=== PATIENT | female | born 1945 | race Caucasian/White ===

== ENCOUNTER → 2017-06-11 | Outpatient (REF) ==
[~2017-06-11] MED LIST: IBUPROFEN200 M1 PO; LORTAB 7.5/5001 TAB PO; LOW DOSE ASPIRI81 MG PO; MULTIVITAMIN FO1 CAP PO; PYRIDIUM200 M1 PO; VITAMIN C500 MG PO; antibiotic
== END ==
LOC: ZLAB.WCH 14:37
DX: Z01.89 Encounter for other specified special examinations (principal)

== ENCOUNTER → 2018-06-10 | Outpatient (REF) | LOC: ZLAB.WCH 16:02 | DX: Z01.89 Encounter for other specified special examinations (principal) ==

== ENCOUNTER 2020-07-20 07:46 | Day surgery (SDC) | payer MEDICARE, BC ==
[2020-07-20] VITALS (9 sets, daily range): BP systolic 123–158; BP diastolic 63–89; PULSE 50–66; TEMP 97.5–97.7
[~2020-07-20] VITALS: Ht 165.1 cm; Wt 73.2 kg
[2020-07-20] MEDS ORDERED: ASPIRIN 81M81 MG/TA2 PO (08:25)
[2020-07-20] MEDS ORDERED: MASON NATURAL2000 IU PO (08:26)
--- NOTE | 2020-07-20 12:25 | NUR ---
Returns to room 5 per cart from PACU accompanied by Jagruti POND and is awake and alert. IV fluids infusing #20G LH and site is free of redness. Temp 97.3 and denies pain or nausea. Assisted up to the bathroom and is able to void and resturns to room.
--- NOTE | 2020-07-20 12:40 | NUR ---
Resting with eyes closed and allowed to rest.
--- NOTE | 2020-07-20 12:55 | NUR ---
States that she is having right sided discomfort. Warm blankets applied on the right side.
--- NOTE | 2020-07-20 12:58 | NUR ---
Tylenol 650mg given for right sided abdominal pain.
--- NOTE | 2020-07-20 13:10 | NUR ---
Again assisted up to the bathroom. Voids and returns to room. IV to INT. Drinking cranberry juice.
[2020-07-20] MEDS ORDERED: PYRIDIUM 100MG100 MG PO (13:16)
--- NOTE | 2020-07-20 13:25 | NUR ---
Resting and denies further pain.
--- NOTE | 2020-07-20 13:40 | NUR ---
Eating petrona crackers and drinking more juice. Script for Pyridium called to [facility].
--- NOTE | 2020-07-20 14:10 | NUR ---
Resting when not disturbed.
--- NOTE | 2020-07-20 14:35 | NUR ---
Denies further pain. IV discontinued and site free of redness. Dresses self and spouse notified patient is ready for discharge.
--- NOTE | 2020-07-20 14:45 | NUR ---
Dismissal instructions given and voices understanding of these. Provided follow up appointment date and time.
--- NOTE | 2020-07-20 14:51 | NUR ---
Patient dismissed to home driven by spouse and taken to the front door per wheelchair and assisted into vehicle with instructions in hand.
== END 2020-07-20 14:51 | disposition home or self-care (01) ==
LOC: SDCO 07:46
DX: N20.1 Calculus of ureter (principal); N30.30 Trigonitis without hematuria; Z85.528 Personal history of other malignant neoplasm of kidney; Z79.82 Long term (current) use of aspirin; Z88.0 Allergy status to penicillin; Z79.899 Other long term (current) drug therapy; Z79.1 Long term (current) use of non-steroidal anti-inflammatories (NSAID); Z90.5 Acquired absence of kidney; Z90.6 Acquired absence of other parts of urinary tract
CPT/HCPCS: C1769; C2617; J2405; J2704; J3010; J7120; Q9967

== ENCOUNTER → 2020-07-28 | Outpatient (CLI) | payer MEDICARE, BC ==
[~2020-07-28] MED LIST changes: +ASPIRIN 81M81 MG/TA2 PO; +MASON NATURAL2000 IU PO; +PYRIDIUM 100MG100 MG PO
== END ==
LOC: COL.LAB 08:00 → EDSTATUS 18:00 → SDCO 18:00
DX: N20.1 Calculus of ureter (principal)
CPT/HCPCS: J1885; J2405; J2704; J3010; J7120

== ENCOUNTER → 2023-09-18 | Outpatient (CLI) | payer MEDICARE, BC ==
[~2023-09-18] MED LIST changes: +B-121000 MCG PO; +NORCO 325 MG-51 TAB PO; +POTASSIUM CITRATE PO; +VITAMIN D31000 I1 PO
== END ==
LOC: MC.RAD 12:39
DX: C50.511 Malignant neoplasm of lower-outer quadrant of right female breast (principal); Z17.0 Estrogen receptor positive status [ER+]
CPT/HCPCS: A9520-JZ; C1769

== ENCOUNTER 2023-09-19 07:33 | Day surgery (SDC) | payer MEDICARE, BC ==
[~2023-09-19] VITALS: Ht 165.1 cm; Wt 69.5 kg
[~2023-09-19 07:33] MED LIST changes: -B-121000 MCG PO; +LR 1,000 ML IV SCH; +Meclizine 25 MG TAB PO SCH; -NORCO 325 MG-51 TAB PO; -POTASSIUM CITRATE PO; -VITAMIN D31000 I1 PO
--- NOTE | 2023-09-19 08:05 | NUR ---
PATIENT AMBULATORY FROM RADIOLOGY ACCOMPANIED BY HERBERT AND ORIENTED TO ROOM 7. VOICES UNDERSTANDING OF SURGERY AND CONSENTS SIGNED. IVF INFUSING. SIDERAILS UP X2 AND CALL LIGHT IN REACH.
[2023-09-19] MEDS ORDERED: VITAMIN D31000 I1 PO (08:59)
[2023-09-19] MEDS ORDERED: B-121000 MCG PO (09:00)
[2023-09-19] MEDS ORDERED: POTASSIUM CITRATE PO (09:03)
[2023-09-19 09:07] VITALS: BP 138/74; PULSE 63; TEMP 98.2
[2023-09-19] MEDS ORDERED: Midazolam 2 MG/2 ML VIAL ONE (09:40)
[2023-09-19] MEDS ORDERED: fentaNYL 50 MCG/ML 2 ML VIAL ONE (09:40)
[2023-09-19] MEDS ORDERED: Lidocaine PF 2% (20 MG/ML) 5 ML VIAL ONE (09:40)
[2023-09-19] MEDS ORDERED: Ondansetron 4 MG/2 ML VIAL ONE (09:41)
[2023-09-19] MEDS ORDERED: dexAMETHasone 10 MG/ML VIAL ONE (09:41)
[2023-09-19] MEDS ORDERED: NS 10 ML IV ONE (09:41)
--- NOTE | 2023-09-19 10:21 | NUR ---
PATIENT BROUGHT BACK TO BAY 7 AFTER HAVING PRE-OP BLOCK PLACED IN PACU IN PREPARATION FOR SURGERY. CALL LIGHT IN REACH. RESTING WITH EYES CLOSED AND CALL LIGHT IN REACH.
[2023-09-19] MEDS ORDERED: Morphine 4 MG/ML VIAL IV PRN (11:00)
[2023-09-19] MEDS ORDERED: Meperidine 50 MG/ML 1 ML VIAL IV PRN (11:00)
[2023-09-19] MEDS ORDERED: HYDROmorphone 2 MG/1 ML VIAL IV PRN (11:00)
[2023-09-19] MEDS ORDERED: Ondansetron 4 MG/2 ML VIAL IV PRN ×2 (11:00→12:15)
[2023-09-19] MEDS ORDERED: ePHEDrine 50 MG/ML VIAL ONE (11:13)
[2023-09-19] MEDS ORDERED: Topical Skin Adhesive 1 EACH (1 ML) TOP ONE (11:45)
[2023-09-19] MEDS ORDERED: NORCO 325 MG-51 TAB PO (12:06)
[2023-09-19] MEDS ORDERED: Acetaminophen 325 MG TAB PO PRN (12:15)
[2023-09-19] MEDS ORDERED: Ibuprofen 600 MG TAB PO PRN (12:15)
[2023-09-19 12:45] VITALS: BP 148/79; PULSE 71; TEMP 97
[2023-09-19 13:00] VITALS: BP 144/75; PULSE 78
[2023-09-19 13:15] VITALS: BP 141/68; PULSE 76
--- NOTE | 2023-09-19 14:40 | NUR ---
1245-REPORT OBTAINED FROM DEJAH PRINGLE. PATIENT ARRIVED TO [facility], ALERT AND ORIENTED ON ARRIVAL. VITAL SIGNS TAKEN, VSS. PATIENT DENIES PAIN OR NAUSEA. INCISION SITES CDI. PATIENT GIVEN PO INTAKE, TOLERATING WELL 1300-PT DENIES COMPLAINTS, VSS. 1315-DISCHARGE INSTRUCTIONS REVIEWED WITH PT, QUESTIONS INVITED. IV CATHETER DISCONTINUED, TIP INTACT. PRESSURE HELD AND BANDAGE APPLIED. PT DRESSED INDEPENDENTLY. 1330-PATIENT DISCHARGED HOME TO [facility] VIA WHEELCHAIR, PICKED UP BY DAUGHTER. ALL BELONGINGS AND D/C INSTRUCTIONS SENT WITH PT.
== END 2023-09-19 13:30 | disposition home or self-care (01) ==
LOC: SDCO 07:33
DX: C50.511 Malignant neoplasm of lower-outer quadrant of right female breast (principal); Z17.0 Estrogen receptor positive status [ER+]; G89.18 Other acute postprocedural pain
CPT/HCPCS: A4648; J0690; J1100; J2250; J2405; J2704; J2795; J3010; J7120